=== PATIENT | female | born 1990 | race Caucasian/White ===

== ENCOUNTER 2016-10-17 08:24 | Emergency (ER) | payer OTHER ==
[2016-10-17 09:08] LABS: HEMOGLOBIN 13.4 gm/dl (12.3-15.3); RED BLOOD COUNT 4.57 M/UL (4.00-5.10); WHITE BLOOD COUNT 7.9 K/UL (4.5-11.0)
[2016-10-17 09:34] LABS: BUN/CREATININE RATIO 17 (0-10)
== END 2016-10-17 10:40 | disposition home or self-care (01) ==
LOC: ER1 08:24
PROVIDERS: Emergency Medicine
DX: R07.89 Other chest pain (principal); F17.200 Nicotine dependence, unspecified, uncomplicated
CPT/HCPCS: 36415; 71010; 80053; 82550; 82553; 83874; 84484; 84703; 85025; 85379; 93005; 99285

== ENCOUNTER 2021-09-02 20:28 | Emergency (ER) | payer OTHER ==
[~2021-09-02 20:28] MED LIST: BACTRIM DS TAB1 EACH PO; BENTYL 20MG TAB20 MG PO; KEFLEX CAP 500500 MG PO; ZOFRAN4 MG PO
[2021-09-02 21:59] LABS: HEMOGLOBIN 14.8 gm/dl (12.3-15.3); RED BLOOD COUNT 4.82 M/UL (4.00-5.10); WHITE BLOOD COUNT 13.5 K/UL (4.5-11.0)
[2021-09-02 22:23] LABS: BUN/CREATININE RATIO 7 (0-10)
[2021-09-02] MEDS ORDERED: BENZONATATE200 MG PO (23:02)
== END 2021-09-02 23:00 | disposition home or self-care (01) ==
LOC: ER1 20:28
PROVIDERS: Family Medicine
DX: M54.6 Pain in thoracic spine (principal); R07.9 Chest pain, unspecified; R05.9 Cough, unspecified; R09.81 Nasal congestion; R00.0 Tachycardia, unspecified; Z20.822 Contact with and (suspected) exposure to COVID-19; F17.200 Nicotine dependence, unspecified, uncomplicated; Z86.16 Personal history of COVID-19; R03.0 Elevated blood-pressure reading, without diagnosis of hypertension
CPT/HCPCS: 71045; 80048; 82550; 82553; 83605; 84439; 84443; 84484; 84703; 85025; 85379; 93005; 96374; 99284; U0002

== ENCOUNTER → 2021-09-21 | Outpatient (CLI) | payer OTHER ==
[~2021-09-21] MED LIST changes: +BENZONATATE200 MG PO
[2021-09-21 20:14] LABS: HEMOGLOBIN 14.1 gm/dl (12.3-15.3); RED BLOOD COUNT 4.46 M/UL (4.00-5.10); WHITE BLOOD COUNT 11.8 K/UL (4.5-11.0)
[2021-09-21 20:30] LABS: BUN/CREATININE RATIO 6 (0-10)
== END ==
LOC: LAB 19:33
PROVIDERS: Emergency Medicine
DX: R22.42 Localized swelling, mass and lump, left lower limb (principal); M79.605 Pain in left leg
CPT/HCPCS: 36415; 80053; 85025; 85379; 85652

== ENCOUNTER 2021-09-22 15:38 | Emergency (ER) | payer OTHER ==
[2021-09-22 16:51] LABS: HEMOGLOBIN 13.9 gm/dl (12.3-15.3); RED BLOOD COUNT 4.5 M/UL (4.00-5.10); WHITE BLOOD COUNT 10.6 K/UL (4.5-11.0)
[2021-09-22 17:27] LABS: BUN/CREATININE RATIO 6 (0-10)
== END 2021-09-22 18:54 | disposition home or self-care (01) ==
LOC: ER1 15:38
PROVIDERS: Nurse Practitioner
DX: I82.812 Embolism and thrombosis of superficial veins of left lower extremity (principal); F17.210 Nicotine dependence, cigarettes, uncomplicated
CPT/HCPCS: 80053; 85025; 85379; 93971; 99284; Q9967

== ENCOUNTER 2021-10-14 23:59 | Emergency (ER) | payer OTHER ==
[2021-10-15] MEDS ORDERED: ASPIRIN EC325 MG PO (02:41)
[2021-10-15] MEDS ORDERED: CEPHALEXIN500 M1 PO (02:41)
== END 2021-10-15 03:10 | disposition home or self-care (01) ==
LOC: ER1 23:59
DX: S93.401A Sprain of unspecified ligament of right ankle, initial encounter (principal); S93.601A Unspecified sprain of right foot, initial encounter; I80.01 Phlebitis and thrombophlebitis of superficial vessels of right lower extremity; L03.115 Cellulitis of right lower limb; F17.210 Nicotine dependence, cigarettes, uncomplicated; I10 Essential (primary) hypertension; X50.1XXA Overexertion from prolonged static or awkward postures, initial encounter; Y93.9 Activity, unspecified; Y92.009 Unspecified place in unspecified non-institutional (private) residence as the place of occurrence of the external cause
CPT/HCPCS: 73610; 73630; 99283